=== PATIENT | male | born 1990 | race Caucasian/White ===

== ENCOUNTER 2018-03-14 22:44 | Emergency (ER) | payer SELFPAY ==
[~2018-03-14 22:44] MED LIST: Sodium Chloride Irrig Solution 250 ML BOT ONE
[2018-03-14] MEDS ORDERED: Acetaminophen 325 MG TAB ONE (23:32)
[2018-03-14] MEDS ORDERED: Cephalexin 500 MG CAP ONE (23:32)
[2018-03-14] MEDS ORDERED: HYDROcodone/Acetaminophen 10/325 mg Tablet ONE (23:32)
[2018-03-14] MEDS ORDERED: Ibuprofen 800 MG TAB ONE (23:32)
[2018-03-14] MEDS ORDERED: Adacel (T-DAP) 0.5 ML VIAL ONE (23:40)
[2018-03-14] MEDS ORDERED: Bacitracin Zinc 1 Packet ONE (23:58)
== END 2018-03-15 00:40 | disposition home or self-care (01) ==
LOC: MADERS 22:44
DX: T24.602A Corrosion of second degree of unspecified site of left lower limb, except ankle and foot, initial encounter (principal); T24.601A Corrosion of second degree of unspecified site of right lower limb, except ankle and foot, initial encounter; L03.115 Cellulitis of right lower limb; F17.210 Nicotine dependence, cigarettes, uncomplicated; X58.XXXA Exposure to other specified factors, initial encounter
CPT/HCPCS: 16020; 90715